=== PATIENT | female | born 1950 | race Caucasian/White ===

== ENCOUNTER 2016-08-16 14:37 | Outpatient (RCR) | payer OTHER ==
--- OUTSIDE RECORDS SUMMARY | 2016-05-25 14:06 | XMS REPORT | Continuity of Care Document ---
Author Author [facility] Organization [facility] Address Unknown Phone Unavailable Care Team Providers Care Information Clerk Brokerage Name Role Phone Kathy Manriquez PCP [phone] Source Comments Some departments are not documenting in the electronic medical record. If you do not see the information that you expected, contact Release of Information in the Health Information Management department at [phone] for further assistance in locating additional records.[facility] Active Allergies and Adverse Reactions Allergen Noted Date Severity Reactions Comments Levaquin 09/23/2015 Low SEE COMMENTS Achilles tendonitis Sulfa (Sulfonamide 05/25/2015 Medium HIVES Antibiotics) Current Medications Prescription Sig. Disp. Refills Start End Date Status Date ondansetron (ZOFRAN) 8 mg Take 1 Tab by mouth every 30 Tab 1 09/07/19 Active tablet 8 hours as needed for 16 Nausea or Vomiting. diphenhydrAMINE/lidocaine Swish and Swallow 10 mL 240 mL 1 09/07/19 Active /antacid(#) (MAGIC as directed four times 16 MOUTHWASH) 1:1:1 daily as needed for Mouth Pain. aspirin 81 mg chewable Take 1 Tab by mouth 90 Tab 09/07/19 Active tablet daily. +++ HOLD DURING 16 TRANSPLANT +++ cetirizine (ZYRTEC) 10 mg Take 1 Tab by mouth 90 Tab 09/07/19 Active tablet daily. +++ HOLD DURING 16 TRANSPLANT +++ LORazepam (ATIVAN) 0.5 mg Take 1-2 Tabs by mouth 45 Tab 0 09/14/19 Active tablet every 6 hours as needed 16 for Nausea, Vomiting or Other... (Anxiety). loperamide (IMODIUM) 2 mg Take 1 Cap by mouth as 30 Cap 09/22/19 Active capsule Needed. 16 emu Apply to lower 09/22/19 Active extremities twice daily. [address] Take 1 Tab by mouth 90 Tab 3 09/22/19 Active (PROTONIX) 40 mg tablet daily. 16 warfarin (COUMADIN) 5 mg Hold coumadin tonight 30 Tab 3 09/27/19 Active tablet 09/27, then restart at 2.5 16 mg daily on 09/28. Check INR level locally on 10/01. metoprolol XL (TOPROL XL) Take 1 Tab by mouth 90 Tab 3 12/22/19 Active 50 mg tablet daily. 16 gabapentin (NEURONTIN) Take 400 mg in the 120 Cap 3 05/15/20 Active 400 mg capsule morning at at noon, and 16 take 800 mg at bedtime. gabapentin (NEURONTIN) Take 400 mg in the 120 Cap 3 12/31/19 Discontin 400 mg capsule morning at at noon, and 16 16 ued take 800 mg at bedtime. Active Problems Problem Noted Date Edema extremities 03/16/2016 Varicose veins of both lower extremities 12/31/2015 Achilles tendinitis of left lower extremity 09/23/2015 Neuropathy (HCC) 09/23/2015 Factor V Leiden mutation (HCC) 09/15/2015 Fatigue due to excessive exertion 09/13/2015 Dry mouth 09/13/2015 Tachycardia 09/12/2015 Pancytopenia due to antineoplastic chemotherapy (HCC) 09/12/2015 Elevated LFTs 09/11/2015 Orthostatic hypotension 09/10/2015 Conditioning chemotherapy prior to peripheral blood stem cell transplant H/O peripheral stem cell transplant (HCC) 09/07/2015 Overview: Date of Transplant: 09/08/15 D-1 Preparative Regimen: Mae 200 Reduced or fully ablative: full Disease: IgA [place] MM Disease Status at Transplant: VGPR Cytogenetic/FISH at DIAGNOSIS: Normal CMV: POS Cell Source: PSC, autologous Consents/Studies: 8322 Coordinator: Faby Walls RN Platelet goal > 50,000. Daily lovenox Myeloma (HCC) 08/17/2015 Multiple myeloma (HCC) 05/25/2015 Neoplastic malignant related fatigue 05/25/2015 Resolved Problems Problem Noted Date Resolved Date Hypokalemia 09/20/2015 12/31/2015 Mucositis due to chemotherapy 09/15/2015 09/22/2015 Diarrhea 09/15/2015 12/31/2015 Decreased oral intake 09/14/2015 12/31/2015 Decreased appetite 09/11/2015 12/31/2015 Nausea 09/11/2015 09/22/2015 Chemotherapy-induced nausea 09/08/2015 12/31/2015 Most Recent Encounters Date Type Specialty Providers Description 05/15/2016 Refill Oncology Cinthya Hagen RN 04/29/2016 Orders Only Oncology Faby Walls RN 03/16/2016 Office Visit Oncology Isak Chen MD Multiple myeloma in remission (HCC) (Primary Dx); H/O peripheral stem cell transplant (HCC); Edema extremities; Multiple myeloma in remission (HCC) [C90.01] 03/16/2016 Hospital Oncology Isak Chen MD Encounter 03/10/2016 Orders Only Oncology Lina Brock APRN H/O stem cell transplant (HCC) (Primary Dx) 03/09/2016 Nurse Only Oncology Isak Chen MD S/P autologous bone marrow transplantation (HCC) Immunizations Name Dates Previously Given Next Due Acthib Vaccine 03/16/2016 Flu Vaccine 05/25/2015 Quadrivalent=>3 Yo (Preservative Free) Hepatitis B Vaccine Adult 03/16/2016 3 Dose IM IPV 03/16/2016 Meningococcal Conjug 03/16/2016 Vaccine IM (MenACWY-D)(Menactra) Pneumococcal 03/16/2016 Vaccine(13-[facility]/immunocompromised adult) Tdap Vaccine 03/16/2016 Social History Tobacco Use Types Packs/Day Years Used Date Never Smoker Smokeless Tobacco: Never Used Alcohol Use Drinks/Week oz/Week Comments No 0 Standard 0.0 drinks or equivalent Last Filed Vital Signs Vital Sign Reading Time Taken Blood Pressure 124/68 03/16/2016 2:34 PM CDT Pulse 55 03/16/2016 2:34 PM CDT Temperature 36.6 C (97.9 F) 03/16/2016 2:34 PM CDT Respiratory Rate 16 03/16/2016 2:34 PM CDT Height 1.626 m (5' 4.02") 03/16/2016 2:34 PM CDT Weight 71.7 kg (158 lb 1.1 oz) 03/16/2016 2:34 PM CDT Body Mass Index 27.12 03/16/2016 2:34 PM CDT Oxygen Saturation 95% 03/16/2016 2:34 PM CDT Plan of Care Health Maintenance Due Date Last Done Comments Hepatitis C Screening 1950 Physical (Comprehensive) 1959 Exam Cervical Cancer Screening 1973 Colorectal Cancer 2002 Screening Shingles Vaccine 2012 Influenza Vaccine 04/20/2016 05/25/2015 Breast Cancer Screening 08/17/2017 08/17/2015 Tetanus Vaccine 03/16/2026 03/16/2016 Pertussis Vaccine Completed 03/16/2016 Results from Last 3 Months KAPPA/LAMBDA FREE LIGHT CHAINS (03/09/2016 10:52 AM) Component Value Range [place], FLC 3.51 (H)Comment: 0.33-1.94 MG/DL [place] results should always be interpreted in conjunction with other laboratory tests and clinical evidence. The possibility of Antigen Excess exists and can cause Immunoassays to under estimate very high concentrations of antigen. Any discordant results should be discussed with Dr. Leigh. Note: Testing instrumentation has changed. The reference range remains the same. Lambda, FLC 2.06 0.57-2.63 MG/DL [place]/Lambda FLC 1.70 (H) 0.26-1.65 Specimen Blood IMMUNOFIXATION, SERUM (IFES) (03/09/2016 10:52 AM) Component Value Range Immuno Fix-Serum NO PARAPROTEIN SEEN Pathologist Signature INTERPRETED BY JACKIE PLATT M.D. By the PATH SIGNATURE ABOVE, I attest that I have personally formulated the final interpretation expressed in this report and that the above diagnosis is based upon my examination of the slides and/or other material indicated in this report. Specimen Blood TOTAL PROTEIN SEP (03/09/2016 10:52 AM) Component Value Range Total Protein 6.1 6.0-8.0 g/dL Specimen Blood ELECTROPHORESIS-SERUM PROTEIN (03/09/2016 10:52 AM) Component Value Range Total Protein-SEP 6.1 6.0-8.0 G/DL Albumin % 64.3 48-68 % Alpha 1 % 6.5 (H) 2-6 % Alpha 2 % 8.3 5-15 % Beta %,Serum 10.0 9-17 % Gamma % 10.9 9-21 % Interpretation - SEP NORMAL ELECTROPHORETIC PATTERN Pathologist Signature INTERPRETED BY JACKIE PLATT M.D. By the PATH SIGNATURE ABOVE, I attest that I have personally formulated the final interpretation expressed in this report and that the above diagnosis is based upon my examination of the slides and/or other material indicated in this report. Specimen Blood IMMUNOGLOBULINS-IGA,IGG,IGM (03/09/2016 10:52 AM) Component Value Range IgG 659 (L) 762-1488 MG/DL IgA 251 70-390 MG/DL IgM 32 (L) 38-328 MG/DL Specimen Blood COMPREHENSIVE METABOLIC PANEL (03/09/2016 10:52 AM) Component Value Range Sodium 140 137-147 MMOL/L Potassium 3.7 3.5-5.1 MMOL/L Chloride 110 98-110 MMOL/L Glucose 97 70-100 MG/DL Blood Urea Nitrogen 16 7-25 MG/DL Creatinine 0.98 0.4-1.00 MG/DL Calcium 9.2 8.5-10.6 MG/DL Total Protein 6.3 6.0-8.0 G/DL Total Bilirubin 1.0 0.3-1.2 MG/DL Albumin 4.2 3.5-5.0 G/DL Alk Phosphatase 64 25-110 U/L AST (SGOT) 20 7-40 U/L CO2 27 21-30 MMOL/L ALT (SGPT) 15 7-56 U/L Anion Gap 3 3-12 eGFR Non 57 (L)Comment: >60 mL/min The eGFR is not validated for use in drug dosing adjustments. Continue to use estimated creatinine clearance per dosing reference text. Please contact the Clinical Pharmacist for questions. eGFR >60Comment: >60 mL/min The eGFR is not validated for use in drug dosing adjustments. Continue to use estimated creatinine clearance per dosing reference text. Please contact the Clinical Pharmacist for questions. Specimen Blood CBC AND DIFF (03/09/2016 10:52 AM) Component Value Range White Blood Cells 4.7 4.5-11.0 K/UL RBC 3.25 (L) 4.0-5.0 M/UL Hemoglobin 9.5 (L) 12.0-15.0 GM/DL Hematocrit 30.6 (L) 36-45 % MCV 94.3 80-100 FL MCH 29.4 26-34 PG MCHC 31.1 (L) 32.0-36.0 G/DL RDW 17.0 (H) 11-15 % Platelet Count 109 (L) 150-400 K/UL MPV 10.1 7-11 FL Neutrophils 40 (L) 41-77 % Lymphocytes 41 24-44 % Monocytes 12 4-12 % Eosinophils 6 (H) 0-5 % Basophils 1 0-2 % Absolute Neutrophil Count 1.90 1.8-7.0 K/UL Absolute Lymph Count 1.90 1.0-4.8 K/UL Absolute Monocyte Count 0.60 0-0.80 K/UL Absolute Eosinophil Count 0.30 0-0.45 K/UL Absolute Basophil Count 0.00 0-0.20 K/UL Specimen Blood IMMUNOFIXATION URINE 24 HOUR (03/08/2016 7:30 AM) Component Value Range Immuno Fix-URINE NO PARAPROTEIN SEEN Pathologist Signature INTERPRETED BY JACKIE PLATT M.D. By the PATH SIGNATURE ABOVE, I attest that I have personally formulated the final interpretation expressed in this report and that the above diagnosis is based upon my examination of the slides and/or other material indicated in this report. URINE COLLECTION (03/08/2016 7:30 AM) Component Value Range Collection Period, Urine 24.0 Volume, Urine 2640 MLS
[2016-05-25 14:21] LABS: BASOPHILS % (AUTO) 1 % (0-10); EOSINOPHILS # (AUTO) 0.1 10^3/uL (0.0-0.3); EOSINOPHILS % (AUTO) 3 % (0-10); LYMPHOCYTES # (AUTO) 1.2 X 10^3 (1.0-4.0); LYMPHOCYTES % (AUTO) 32 % (12-44); MEAN CORPUSCULAR HEMOGLOBIN 28 PG (25-34); MEAN CORPUSCULAR HGB CONC 33 G/DL (32-36); MEAN CORPUSCULAR VOLUME 85 FL (80-99); MEAN PLATELET VOLUME 10.2 FL (7.4-10.4); MONOCYTES # (AUTO) 0.5 X 10^3 (0.0-1.0); MONOCYTES % (AUTO) 14 % (0-12); NEUTROPHILS # (AUTO) 1.8 X 10^3 (1.8-7.8); NEUTROPHILS % (AUTO) 50 % (42-75); PLATELET COUNT 149 10^3/uL (130-400); RED BLOOD COUNT 4.56 10^6/uL (4.35-5.85); RED CELL DISTRIBUTION WIDTH 17.2 % (10.0-14.5); WHITE BLOOD COUNT 3.6 10^3/uL (4.3-11.0)
[2016-05-25 14:30] LABS: PEP REPORT SEE PATH REPORT
[2016-05-25 14:45] LABS: PROTHROMBIN TIME PATIENT 22.1 SEC (12.2-14.7)
[2016-05-25 14:52] LABS: ALBUMIN 4.3 G/DL (3.2-4.5); BILIRUBIN,TOTAL 0.5 MG/DL (0.1-1.0); CALCIUM 9.6 MG/DL (8.5-10.1); CREATININE SERUM 0.97 MG/DL (0.60-1.30); POTASSIUM 4.2 MMOL/L (3.6-5.0); TOTAL PROTEIN 6.7 G/DL (6.4-8.2)
[2016-05-26 01:29] LABS: LIGHT CHAIN KAPPA SERUM QUANT 34.24 mg/L (3.30-19.40); LIGHT CHAIN LAMBDA SERUM QUANT 16.22 mg/L (5.71-26.30)
[2016-05-29 17:17] LABS: SERUM PROTEIN ELEC DETAIL L-16-0012765
[2016-05-29 17:23] LABS: CLIN PATHOLOGY REPORT FOOTNOTE
[2016-06-01 15:57] LABS: BASOPHILS % (AUTO) 1 % (0-10); EOSINOPHILS # (AUTO) 0.2 10^3/uL (0.0-0.3); EOSINOPHILS % (AUTO) 4 % (0-10); LYMPHOCYTES # (AUTO) 1.3 X 10^3 (1.0-4.0); LYMPHOCYTES % (AUTO) 29 % (12-44); MEAN CORPUSCULAR HEMOGLOBIN 28 PG (25-34); MEAN CORPUSCULAR HGB CONC 33 G/DL (32-36); MEAN CORPUSCULAR VOLUME 85 FL (80-99); MEAN PLATELET VOLUME 10.2 FL (7.4-10.4); MONOCYTES # (AUTO) 0.3 X 10^3 (0.0-1.0); MONOCYTES % (AUTO) 7 % (0-12); NEUTROPHILS # (AUTO) 2.6 X 10^3 (1.8-7.8); NEUTROPHILS % (AUTO) 60 % (42-75); PLATELET COUNT 144 10^3/uL (130-400); RED CELL DISTRIBUTION WIDTH 17.3 % (10.0-14.5); WHITE BLOOD COUNT 4.4 10^3/uL (4.3-11.0)
[2016-06-01 16:19] LABS: INR 1.9 (0.8-1.4); PROTHROMBIN TIME PATIENT 21.9 SEC (12.2-14.7)
[2016-06-01 16:24] LABS: ANION GAP 8 MMOL/L (5-14); BLOOD UREA NITROGEN 14 MG/DL (7-18); BUN/CREATININE RATIO 16; CALCIUM 9.2 MG/DL (8.5-10.1); CARBON DIOXIDE 28 MMOL/L (21-32); CHLORIDE 105 MMOL/L (98-107); CREATININE SERUM 0.86 MG/DL (0.60-1.30); GFR ESTIMATED > 60; GLUCOSE 99 MG/DL (70-105); POTASSIUM 4.1 MMOL/L (3.6-5.0); SODIUM 141 MMOL/L (135-145)
[2016-06-08 11:06] LABS: BASOPHILS % (AUTO) 0 % (0-10); EOSINOPHILS # (AUTO) 0.3 10^3/uL (0.0-0.3); EOSINOPHILS % (AUTO) 6 % (0-10); LYMPHOCYTES # (AUTO) 1.5 X 10^3 (1.0-4.0); LYMPHOCYTES % (AUTO) 28 % (12-44); MEAN CORPUSCULAR HEMOGLOBIN 28 PG (25-34); MEAN CORPUSCULAR HGB CONC 33 G/DL (32-36); MEAN CORPUSCULAR VOLUME 84 FL (80-99); MEAN PLATELET VOLUME 10.6 FL (7.4-10.4); MONOCYTES # (AUTO) 0.5 X 10^3 (0.0-1.0); MONOCYTES % (AUTO) 9 % (0-12); NEUTROPHILS % (AUTO) 57 % (42-75); PLATELET COUNT 126 10^3/uL (130-400); RED BLOOD COUNT 4.43 10^6/uL (4.35-5.85); RED CELL DISTRIBUTION WIDTH 16.7 % (10.0-14.5); WHITE BLOOD COUNT 5.3 10^3/uL (4.3-11.0)
[2016-06-08 11:24] LABS: ANION GAP 8 MMOL/L (5-14); BLOOD UREA NITROGEN 14 MG/DL (7-18); BUN/CREATININE RATIO 16; CALCIUM 8.8 MG/DL (8.5-10.1); CARBON DIOXIDE 26 MMOL/L (21-32); CHLORIDE 106 MMOL/L (98-107); CREATININE SERUM 0.85 MG/DL (0.60-1.30); GFR ESTIMATED > 60; GLUCOSE 92 MG/DL (70-105); POTASSIUM 3.8 MMOL/L (3.6-5.0); SODIUM 140 MMOL/L (135-145)
[2016-06-15 11:58] LABS: BASOPHILS % (AUTO) 1 % (0-10); EOSINOPHILS # (AUTO) 0.4 10^3/uL (0.0-0.3); EOSINOPHILS % (AUTO) 10 % (0-10); LYMPHOCYTES # (AUTO) 1.3 X 10^3 (1.0-4.0); LYMPHOCYTES % (AUTO) 36 % (12-44); MEAN CORPUSCULAR HEMOGLOBIN 27 PG (25-34); MEAN CORPUSCULAR HGB CONC 32 G/DL (32-36); MEAN CORPUSCULAR VOLUME 84 FL (80-99); MEAN PLATELET VOLUME 10.2 FL (7.4-10.4); MONOCYTES # (AUTO) 0.4 X 10^3 (0.0-1.0); MONOCYTES % (AUTO) 11 % (0-12); NEUTROPHILS # (AUTO) 1.5 X 10^3 (1.8-7.8); NEUTROPHILS % (AUTO) 42 % (42-75); PLATELET COUNT 123 10^3/uL (130-400); RED BLOOD COUNT 4.27 10^6/uL (4.35-5.85); RED CELL DISTRIBUTION WIDTH 17.1 % (10.0-14.5); WHITE BLOOD COUNT 3.5 10^3/uL (4.3-11.0)
[2016-06-15 12:38] LABS: INR 2.1 (0.8-1.4); PROTHROMBIN TIME PATIENT 23.2 SEC (12.2-14.7)
[2016-06-15 12:47] LABS: CALCIUM 8.7 MG/DL (8.5-10.1); CREATININE SERUM 1.04 MG/DL (0.60-1.30); POTASSIUM 4.5 MMOL/L (3.6-5.0)
[2016-06-22 13:40] LABS: BASOPHILS % (AUTO) 1 % (0-10); EOSINOPHILS # (AUTO) 0.2 10^3/uL (0.0-0.3); EOSINOPHILS % (AUTO) 6 % (0-10); LYMPHOCYTES # (AUTO) 1.5 X 10^3 (1.0-4.0); LYMPHOCYTES % (AUTO) 36 % (12-44); MEAN CORPUSCULAR HEMOGLOBIN 27 PG (25-34); MEAN CORPUSCULAR HGB CONC 33 G/DL (32-36); MEAN CORPUSCULAR VOLUME 83 FL (80-99); MEAN PLATELET VOLUME 9.7 FL (7.4-10.4); MONOCYTES # (AUTO) 0.5 X 10^3 (0.0-1.0); MONOCYTES % (AUTO) 11 % (0-12); NEUTROPHILS % (AUTO) 48 % (42-75); PLATELET COUNT 147 10^3/uL (130-400); RED BLOOD COUNT 4.29 10^6/uL (4.35-5.85); RED CELL DISTRIBUTION WIDTH 17.6 % (10.0-14.5); WHITE BLOOD COUNT 4.1 10^3/uL (4.3-11.0)
[2016-06-22 13:46] LABS: PEP REPORT SEE PATH REPORT
[2016-06-22 13:58] LABS: INR 2.2 (0.8-1.4); PROTHROMBIN TIME PATIENT 24.4 SEC (12.2-14.7)
[2016-06-22 14:06] LABS: ALANINE AMINOTRANSFERASE 35 U/L (0-55); ALBUMIN 4.1 G/DL (3.2-4.5); ANION GAP 7 MMOL/L (5-14); ASPARTATE AMINO TRANSFERASE 29 U/L (5-34); BILIRUBIN,TOTAL 0.5 MG/DL (0.1-1.0); BLOOD UREA NITROGEN 14 MG/DL (7-18); BUN/CREATININE RATIO 16; CALCIUM 8.9 MG/DL (8.5-10.1); CARBON DIOXIDE 23 MMOL/L (21-32); CHLORIDE 110 MMOL/L (98-107); CREATININE SERUM 0.88 MG/DL (0.60-1.30); GFR ESTIMATED > 60; GLUCOSE 91 MG/DL (70-105); POTASSIUM 3.9 MMOL/L (3.6-5.0); SODIUM 140 MMOL/L (135-145); TOTAL PROTEIN 6.4 G/DL (6.4-8.2)
[2016-06-23 08:55] LABS: LIGHT CHAIN KAPPA SERUM QUANT 31.66 mg/L (3.30-19.40); LIGHT CHAIN LAMBDA SERUM QUANT 17.99 mg/L (5.71-26.30)
[2016-06-26 11:06] LABS: CLIN PATHOLOGY REPORT FOOTNOTE; SERUM PROTEIN ELEC DETAIL L-16-0014074
[2016-06-29 12:03] LABS: BASOPHILS % (AUTO) 0 % (0-10); EOSINOPHILS # (AUTO) 0.3 10^3/uL (0.0-0.3); EOSINOPHILS % (AUTO) 7 % (0-10); LYMPHOCYTES # (AUTO) 1.3 X 10^3 (1.0-4.0); LYMPHOCYTES % (AUTO) 28 % (12-44); MEAN CORPUSCULAR HEMOGLOBIN 27 PG (25-34); MEAN CORPUSCULAR HGB CONC 33 G/DL (32-36); MEAN CORPUSCULAR VOLUME 84 FL (80-99); MEAN PLATELET VOLUME 10.1 FL (7.4-10.4); MONOCYTES # (AUTO) 0.2 X 10^3 (0.0-1.0); MONOCYTES % (AUTO) 5 % (0-12); NEUTROPHILS # (AUTO) 2.7 X 10^3 (1.8-7.8); NEUTROPHILS % (AUTO) 59 % (42-75); PLATELET COUNT 149 10^3/uL (130-400); RED BLOOD COUNT 4.16 10^6/uL (4.35-5.85); RED CELL DISTRIBUTION WIDTH 17.8 % (10.0-14.5); WHITE BLOOD COUNT 4.5 10^3/uL (4.3-11.0)
[2016-06-29 12:31] LABS: INR 2.2 (0.8-1.4); PROTHROMBIN TIME PATIENT 23.9 SEC (12.2-14.7)
[2016-06-29 12:36] LABS: ANION GAP 8 MMOL/L (5-14); BLOOD UREA NITROGEN 13 MG/DL (7-18); BUN/CREATININE RATIO 14; CALCIUM 9.3 MG/DL (8.5-10.1); CARBON DIOXIDE 27 MMOL/L (21-32); CHLORIDE 107 MMOL/L (98-107); CREATININE SERUM 0.91 MG/DL (0.60-1.30); GFR ESTIMATED > 60; GLUCOSE 84 MG/DL (70-105); POTASSIUM 4.2 MMOL/L (3.6-5.0); SODIUM 142 MMOL/L (135-145)
[2016-07-06 11:34] LABS: BASOPHILS % (AUTO) 0 % (0-10); EOSINOPHILS # (AUTO) 0.2 10^3/uL (0.0-0.3); EOSINOPHILS % (AUTO) 5 % (0-10); LYMPHOCYTES # (AUTO) 1.4 X 10^3 (1.0-4.0); LYMPHOCYTES % (AUTO) 28 % (12-44); MEAN CORPUSCULAR HEMOGLOBIN 27 PG (25-34); MEAN CORPUSCULAR HGB CONC 33 G/DL (32-36); MEAN CORPUSCULAR VOLUME 83 FL (80-99); MEAN PLATELET VOLUME 10.8 FL (7.4-10.4); MONOCYTES # (AUTO) 0.4 X 10^3 (0.0-1.0); MONOCYTES % (AUTO) 8 % (0-12); NEUTROPHILS # (AUTO) 3.1 X 10^3 (1.8-7.8); NEUTROPHILS % (AUTO) 60 % (42-75); PLATELET COUNT 128 10^3/uL (130-400); RED BLOOD COUNT 4.26 10^6/uL (4.35-5.85); RED CELL DISTRIBUTION WIDTH 18.1 % (10.0-14.5); WHITE BLOOD COUNT 5.2 10^3/uL (4.3-11.0)
[2016-07-06 12:03] LABS: INR 3.1 (0.8-1.4); PROTHROMBIN TIME PATIENT 31.8 SEC (12.2-14.7)
[2016-07-06 12:11] LABS: CALCIUM 8.7 MG/DL (8.5-10.1); CREATININE SERUM 0.94 MG/DL (0.60-1.30); POTASSIUM 4.4 MMOL/L (3.6-5.0)
[2016-07-12 12:00] LABS: BASOPHILS % (AUTO) 1 % (0-10); EOSINOPHILS # (AUTO) 0.4 10^3/uL (0.0-0.3); EOSINOPHILS % (AUTO) 11 % (0-10); LYMPHOCYTES # (AUTO) 1.4 X 10^3 (1.0-4.0); LYMPHOCYTES % (AUTO) 40 % (12-44); MEAN CORPUSCULAR HEMOGLOBIN 27 PG (25-34); MEAN CORPUSCULAR HGB CONC 33 G/DL (32-36); MEAN CORPUSCULAR VOLUME 84 FL (80-99); MEAN PLATELET VOLUME 10.5 FL (7.4-10.4); MONOCYTES # (AUTO) 0.4 X 10^3 (0.0-1.0); MONOCYTES % (AUTO) 11 % (0-12); NEUTROPHILS # (AUTO) 1.3 X 10^3 (1.8-7.8); NEUTROPHILS % (AUTO) 38 % (42-75); PLATELET COUNT 136 10^3/uL (130-400); RED BLOOD COUNT 4.17 10^6/uL (4.35-5.85); RED CELL DISTRIBUTION WIDTH 18.7 % (10.0-14.5); WHITE BLOOD COUNT 3.4 10^3/uL (4.3-11.0)
[2016-07-12 12:47] LABS: INR 2.6 (0.8-1.4); PROTHROMBIN TIME PATIENT 27.3 SEC (12.2-14.7)
[2016-07-12 12:58] LABS: CREATININE SERUM 1.02 MG/DL (0.60-1.30); POTASSIUM 3.9 MMOL/L (3.6-5.0)
[2016-07-20 11:59] LABS: BASOPHILS % (AUTO) 1 % (0-10); EOSINOPHILS # (AUTO) 0.1 10^3/uL (0.0-0.3); EOSINOPHILS % (AUTO) 2 % (0-10); LYMPHOCYTES # (AUTO) 1.4 X 10^3 (1.0-4.0); LYMPHOCYTES % (AUTO) 34 % (12-44); MEAN CORPUSCULAR HEMOGLOBIN 28 PG (25-34); MEAN CORPUSCULAR HGB CONC 33 G/DL (32-36); MEAN CORPUSCULAR VOLUME 83 FL (80-99); MEAN PLATELET VOLUME 10.4 FL (7.4-10.4); MONOCYTES # (AUTO) 0.5 X 10^3 (0.0-1.0); MONOCYTES % (AUTO) 12 % (0-12); NEUTROPHILS % (AUTO) 51 % (42-75); PLATELET COUNT 173 10^3/uL (130-400); RED BLOOD COUNT 4.52 10^6/uL (4.35-5.85); WHITE BLOOD COUNT 3.9 10^3/uL (4.3-11.0)
[2016-07-20 12:15] LABS: INR 1.8 (0.8-1.4); PROTHROMBIN TIME PATIENT 20.4 SEC (12.2-14.7)
[2016-07-20 12:21] LABS: ANION GAP 10 MMOL/L (5-14); BLOOD UREA NITROGEN 15 MG/DL (7-18); BUN/CREATININE RATIO 17; CALCIUM 9.3 MG/DL (8.5-10.1); CARBON DIOXIDE 22 MMOL/L (21-32); CHLORIDE 109 MMOL/L (98-107); CREATININE SERUM 0.88 MG/DL (0.60-1.30); GFR ESTIMATED > 60; GLUCOSE 82 MG/DL (70-105); POTASSIUM 3.7 MMOL/L (3.6-5.0); SODIUM 141 MMOL/L (135-145)
[2016-07-26 15:42] LABS: INR 1.5 (0.8-1.4); PROTHROMBIN TIME PATIENT 17.5 SEC (12.2-14.7)
[2016-08-03 11:29] LABS: BASOPHILS % (AUTO) 0 % (0-10); EOSINOPHILS # (AUTO) 0.2 10^3/uL (0.0-0.3); EOSINOPHILS % (AUTO) 4 % (0-10); LYMPHOCYTES # (AUTO) 1.5 X 10^3 (1.0-4.0); LYMPHOCYTES % (AUTO) 34 % (12-44); MEAN CORPUSCULAR HEMOGLOBIN 28 PG (25-34); MEAN CORPUSCULAR HGB CONC 33 G/DL (32-36); MEAN CORPUSCULAR VOLUME 85 FL (80-99); MEAN PLATELET VOLUME 10.4 FL (7.4-10.4); MONOCYTES # (AUTO) 0.4 X 10^3 (0.0-1.0); MONOCYTES % (AUTO) 8 % (0-12); NEUTROPHILS # (AUTO) 2.4 X 10^3 (1.8-7.8); NEUTROPHILS % (AUTO) 53 % (42-75); PLATELET COUNT 130 10^3/uL (130-400); RED BLOOD COUNT 4.16 10^6/uL (4.35-5.85); RED CELL DISTRIBUTION WIDTH 19.3 % (10.0-14.5); WHITE BLOOD COUNT 4.5 10^3/uL (4.3-11.0)
[2016-08-03 12:11] LABS: INR 1.9 (0.8-1.4); PROTHROMBIN TIME PATIENT 21.9 SEC (12.2-14.7)
[2016-08-03 12:25] LABS: CALCIUM 9.1 MG/DL (8.5-10.1); CREATININE SERUM 1.04 MG/DL (0.60-1.30); POTASSIUM 4.2 MMOL/L (3.6-5.0)
[2016-08-10 11:42] LABS: INR 2.5 (0.8-1.4); PROTHROMBIN TIME PATIENT 27.2 SEC (12.2-14.7)
[~2016-08-16 14:37] MED LIST: AC325T PO; ASP81CT PO; CALC-9 PO; CHOL10003 PO; FLU TRIvalent (5 YOA+) 2016-17 (CANCER CTR) 0.5 ML IM ONE; METO50TA7 PO; WRF5T PO; ZOLEDRONIC ACID (CANCER CTR) 4 MG in NS (IVPB) CANCER CENTER 100 ML IV SCH
== END 2016-08-23 | disposition home or self-care (01) ==
LOC: ONC 14:37
PROVIDERS: ATTEND Internal Medicine Hematology & Oncology
DX: C90.00 Multiple myeloma not having achieved remission (principal); D68.51 Activated protein C resistance; Z86.718 Personal history of other venous thrombosis and embolism; Z79.01 Long term (current) use of anticoagulants; Z79.899 Other long term (current) drug therapy
CPT/HCPCS: 36415; 80048; 80053; 82232; 83883; 84155; 84165; 85025; 85610; 90471; 96365; 99213

== ENCOUNTER 2016-10-03 11:00 | Outpatient (RCR) | payer OTHER ==
--- OUTSIDE RECORDS SUMMARY | 2016-08-24 11:13 | XMS REPORT | Continuity of Care Document ---
Author Author [facility] Organization [facility] Address Unknown Phone Unavailable Care Team Providers Care Line Assembler Name Role Phone Kathy Manriquez PCP [phone] Source Comments Some departments are not documenting in the electronic medical record. If you do not see the information that you expected, contact Release of Information in the Health Information Management department at [phone] for further assistance in locating additional records.[facility] Active Allergies and Adverse [...] and 16 take 800 mg at bedtime. Active Problems [...] cell transplant H/O peripheral stem cell transplant ([facility]) 09/07/2015 Overview: Date of Transplant: 09/08/15 D-1 Preparative Regimen: Mae 200 Reduced or fully ablative: full Disease: IgA [place] MM Disease Status at Transplant: VGPR Cytogenetic/FISH [...] Recent Encounters Date Type Specialty Providers Description 08/18/2016 Telephone Oncology Jody Dawson BMT Follow-up - 1 year 07/31/2016 Telephone Oncology Jody Dawson BMT Follow-up Immunizations Name Dates Previously Given Next Due [...] 03/16/2016 2:34 PM CDT Plan of Care Date Type Specialty Providers Description 09/11/2016 Appointment Radiology Nicole Lombardi, PRECISION [employer]ER HAND [address] [place] [address] [phone] (Fax) 09/11/2016 Appointment Oncology 09/11/2016 Appointment Oncology 09/27/2016 Appointment Oncology Navdeep Mcbride MD [address] [place] [address] [phone] (Fax) 09/27/2016 Appointment Oncology Health Maintenance Due Date Last Done Comments Hepatitis C Screening 1950 Physical (Comprehensive) 1959 Exam Cervical Cancer Screening 1973 Colorectal Cancer 2002 Screening Shingles Vaccine 2012 Influenza Vaccine 04/20/2016 05/25/2015 Breast Cancer Screening 08/17/2017 08/17/2015 Tetanus Vaccine 03/16/2026 03/16/2016 Pertussis Vaccine Completed 03/16/2016 Results from Last 3 Months Not on file
[2016-08-24 11:31] LABS: BASOPHILS % (AUTO) 0 % (0-10); EOSINOPHILS # (AUTO) 0.1 10^3/uL (0.0-0.3); EOSINOPHILS % (AUTO) 2 % (0-10); LYMPHOCYTES # (AUTO) 1.3 X 10^3 (1.0-4.0); LYMPHOCYTES % (AUTO) 24 % (12-44); MEAN CORPUSCULAR HEMOGLOBIN 28 PG (25-34); MEAN CORPUSCULAR HGB CONC 32 G/DL (32-36); MEAN CORPUSCULAR VOLUME 87 FL (80-99); MEAN PLATELET VOLUME 10.3 FL (7.4-10.4); MONOCYTES # (AUTO) 0.3 X 10^3 (0.0-1.0); MONOCYTES % (AUTO) 5 % (0-12); NEUTROPHILS # (AUTO) 3.6 X 10^3 (1.8-7.8); NEUTROPHILS % (AUTO) 68 % (42-75); PLATELET COUNT 171 10^3/uL (130-400); RED BLOOD COUNT 4.14 10^6/uL (4.35-5.85); RED CELL DISTRIBUTION WIDTH 18.8 % (10.0-14.5); WHITE BLOOD COUNT 5.2 10^3/uL (4.3-11.0)
[2016-08-24 11:52] LABS: INR 2.4 (0.8-1.4); PROTHROMBIN TIME PATIENT 25.6 SEC (12.2-14.7)
[2016-08-24 11:58] LABS: CALCIUM 9.6 MG/DL (8.5-10.1); CREATININE SERUM 1.11 MG/DL (0.60-1.30); POTASSIUM 4.3 MMOL/L (3.6-5.0)
[2016-09-29 11:32] LABS: PEP REPORT SEE PATH REPORT
[2016-09-29 11:38] LABS: BASOPHILS % (AUTO) 0 % (0-10); EOSINOPHILS # (AUTO) 0.2 10^3/uL (0.0-0.3); EOSINOPHILS % (AUTO) 4 % (0-10); LYMPHOCYTES # (AUTO) 1.3 X 10^3 (1.0-4.0); LYMPHOCYTES % (AUTO) 27 % (12-44); MEAN CORPUSCULAR HEMOGLOBIN 29 PG (25-34); MEAN CORPUSCULAR HGB CONC 33 G/DL (32-36); MEAN CORPUSCULAR VOLUME 88 FL (80-99); MEAN PLATELET VOLUME 11.5 FL (7.4-10.4); MONOCYTES # (AUTO) 0.4 X 10^3 (0.0-1.0); MONOCYTES % (AUTO) 9 % (0-12); NEUTROPHILS % (AUTO) 61 % (42-75); PLATELET COUNT 117 10^3/uL (130-400); RED BLOOD COUNT 4.25 10^6/uL (4.35-5.85); RED CELL DISTRIBUTION WIDTH 17.4 % (10.0-14.5); WHITE BLOOD COUNT 4.9 10^3/uL (4.3-11.0)
[2016-09-29 11:52] LABS: ALBUMIN 4.1 G/DL (3.2-4.5); BILIRUBIN,TOTAL 0.5 MG/DL (0.1-1.0); CALCIUM 8.8 MG/DL (8.5-10.1); CREATININE SERUM 1.19 MG/DL (0.60-1.30); POTASSIUM 3.9 MMOL/L (3.6-5.0); TOTAL PROTEIN 6.8 G/DL (6.4-8.2)
[2016-09-30 03:11] LABS: LIGHT CHAIN KAPPA SERUM QUANT 54.52 mg/L (3.30-19.40); LIGHT CHAIN LAMBDA SERUM QUANT 22.49 mg/L (5.71-26.30)
[~2016-10-03 11:00] MED LIST changes: -FLU TRIvalent (5 YOA+) 2016-17 (CANCER CTR) 0.5 ML IM ONE
[2016-10-04 06:54] LABS: CLIN PATHOLOGY REPORT FOOTNOTE; SERUM PROTEIN ELEC DETAIL L-17-0001972
== END 2016-11-22 | disposition home or self-care (01) ==
LOC: ONC 11:00
PROVIDERS: ATTEND Internal Medicine Hematology & Oncology
DX: C90.00 Multiple myeloma not having achieved remission (principal); D68.51 Activated protein C resistance; Z86.718 Personal history of other venous thrombosis and embolism; Z79.01 Long term (current) use of anticoagulants; Z79.899 Other long term (current) drug therapy
CPT/HCPCS: 80048; 80053; 82232; 83883; 84155; 84165; 85025; 85610; 86146; 96365; 99213

== ENCOUNTER → 2017-01-04 | Outpatient (CLI) | payer OTHER ==
[~2017-01-04] MED LIST changes: -ZOLEDRONIC ACID (CANCER CTR) 4 MG in NS (IVPB) CANCER CENTER 100 ML IV SCH
--- NOTE | 2017-01-04 19:40 | Diagnostic Imaging Report ---
Bilateral screening mammogram. The current study was also evaluated with a Computer Aided Detection (CAD) system. INDICATION: Screening. No current complaints stated on the questionnaire. COMPARISON: 03/10/2014. FINDINGS: The breasts are composed of heterogeneously dense parenchyma which may decrease mammographic sensitivity. There are increasing calcifications in the lateral aspect of the right breast. The left breast demonstrates benign-appearing calcifications and stable appearance overall. IMPRESSION: Focal compression magnification views and ultrasound evaluation recommended for increasing lateral right breast calcifications. ACR BI-RADS Category 0: Incomplete. (Needs additional imaging evaluation). Result letter will be mailed to the patient. Note: At least 10% of breast cancer is not imaged by mammography. Dictated by: Dictated on workstation # [id number]
== END ==
LOC: RAD 09:49
PROVIDERS: ATTEND Internal Medicine Hematology & Oncology
DX: Z12.31 Encounter for screening mammogram for malignant neoplasm of breast (principal)
CPT/HCPCS: 77067

== ENCOUNTER → 2017-01-22 | Outpatient (CLI) | payer OTHER ==
--- NOTE | 2017-01-22 09:19 | Diagnostic Imaging Report ---
EXAMINATION: Right breast diagnostic mammogram. CAD is utilized. The current study was also evaluated with a Computer Aided Detection (CAD) system. COMPARISON: 03/10/14. INDICATION: Increased calcifications seen in the outer aspect of the right breast when compared to 03/02 exam noted on the recent screening of 01/04/17. FINDINGS: The group of calcifications demonstrates mild heterogeneity with no definite associated mass. These are indeterminate. IMPRESSION: Indeterminate mildly heterogenous coarse calcifications in the upper aspect of the right breast. Ultrasound evaluation to check for associated mass is pending. BI-RADS 0. ACR BI-RADS Category 0: Incomplete. (Needs additional imaging evaluation). Result letter will be mailed to the patient. Note: At least 10% of breast cancer is not imaged by mammography. Dictated by: Dictated on workstation # [id number]
--- NOTE | 2017-01-22 19:17 | Diagnostic Imaging Report ---
EXAMINATION: Limited right breast ultrasound. INDICATION: Calcifications seen in the outer aspect of the right breast. FINDINGS: The outer aspect of the right breast was scanned with no suspicious mass identified. IMPRESSION: Negative study. The calcifications in the outer aspect of the right breast are indeterminate. Four-month followup mammogram to ensure stability is recommended. ACR BI-RADS Category 3: Probably benign findings. Dictated by: Dictated on workstation # [id number]
== END ==
LOC: RAD 08:37
PROVIDERS: ATTEND Internal Medicine Hematology & Oncology
DX: R92.1 Mammographic calcification found on diagnostic imaging of breast (principal)

== ENCOUNTER 2017-03-16 13:45 | Outpatient (RCR) | payer OTHER ==
[~2017-03-16 13:45] MED LIST changes: +NS IV SCH; +ZOLEDRONIC ACID (CANCER CTR) 4 MG in NS (IVPB) CANCER CENTER 100 ML IV SCH; +ZOLEDRONIC ACID IV SCH
== END 2017-03-20 09:02 | disposition home or self-care (01) ==
LOC: ONC 13:45
PROVIDERS: ATTEND Internal Medicine Hematology & Oncology
DX: C90.00 Multiple myeloma not having achieved remission (principal); D68.51 Activated protein C resistance; Z86.718 Personal history of other venous thrombosis and embolism; Z79.01 Long term (current) use of anticoagulants; Z79.899 Other long term (current) drug therapy
CPT/HCPCS: 96365; 99213

== ENCOUNTER 2017-03-26 13:15 | Outpatient (RCR) | payer OTHER ==
[~2017-03-26 13:15] MED LIST changes: -ZOLEDRONIC ACID (CANCER CTR) 4 MG in NS (IVPB) CANCER CENTER 100 ML IV SCH
[2017-03-26 14:18] LABS: INR 1.9 (0.8-1.4); PROTHROMBIN TIME PATIENT 21.2 SEC (12.2-14.7)
== END 2017-05-19 | disposition home or self-care (01) ==
LOC: ONC 13:15
PROVIDERS: ATTEND Internal Medicine Hematology & Oncology
DX: C90.00 Multiple myeloma not having achieved remission (principal); D68.51 Activated protein C resistance; Z86.718 Personal history of other venous thrombosis and embolism; Z79.01 Long term (current) use of anticoagulants; Z79.899 Other long term (current) drug therapy
CPT/HCPCS: 36415; 85610; 96365